=== PATIENT | female | born 1980 | race Caucasian/White ===

== ENCOUNTER 2019-11-25 19:39 | Emergency (ER) | payer SELFPAY ==
[2019-11-25] MEDS ORDERED: ONDANSETRON 4 MG/2 ML VIAL ONE (20:04)
[2019-11-25] MEDS ORDERED: NA CHLORIDE 0.9% 1,000 ML ONE (20:04)
[2019-11-25] MEDS ORDERED: MORPHINE 2 MG/ML SYR ONE (20:04)
--- NOTE | 2019-11-25 20:57 | RAD REPORT ---
EXAM DESCRIPTION: RAD - Tib Fib Right - 11/25/2019 8:16 pm CLINICAL HISTORY: PAIN COMPARISON: No comparisons FINDINGS: Oblique fracture is present through the proximal shaft of the right fibula. No significant distraction or angulation deformity. No new knee joint abnormality seen. Posterior malleolus fractur e of the tibia is present at the ankle joint. Fracture of the medial malleolus is also present withou t distraction or angulation component. This is possibly a combined fracture of both the posterior and medial malleolus. Distal fibula is intact. Tear of the interosseous ligament is suspected given the distal tibia and proximal fibula fracture pattern. Ankle is not fully assessed. No periosteal reactio n. No pathologic bone process. Right leg soft tissue swelling is present without foreign body. IMPRESSION: Posterior and medial malleolus fractures of the distal tibia present along with proximal fibula shaft fracture. Interosseous ligament tear is likely present as well.
--- NOTE | 2019-11-25 22:34 | ER ---
Nurse's Notes [facility] Name: Suyapa Lewis Age: 39 yrs Sex: Female : 1980 Arrival Date: 11/25/2019 Time: 19:42 Bed 16 Private MD: Diagnosis: Displaced oblique fracture of shaft of right fibula-proximal;Nondisplaced fracture of medial malleolus of right tibia Presentation: 11/24 19:43 Chief complaint: EMS states: pt was walking up a hill when she missed her footing and sg fell from standing, reports pain and swelling to the right ankle, EMS state " obvious deformity" on scene, a splint has been applied. Coronavirus screen: Client denies travel out of the [place] in the last 14 days. At this time, the client does not indicate any symptoms associated with coronavirus-19. Ebola Screen: Patient negative for fever greater than or equal to 101.5 degrees Fahrenheit, and additional compatible Ebola Virus Disease symptoms Patient denies exposure to infectious person. Patient denies travel to an Ebola-affected area in the 21 days before illness onset. No symptoms or risks identified at this time. Initial Sepsis Screen: Does the patient meet any 2 criteria? No. Patient's initial sepsis screen is negative. Does the patient have a suspected source of infection? No. Patient's initial sepsis screen is negative. Risk Assessment: Do you want to hurt yourself or someone else? Patient reports no desire to harm self or others. Onset of symptoms was November 25, 2019. 19:43 Method Of Arrival: EMS: [facility] 19:43 Acuity: BRODY 3 sg 19:43 Care prior to arrival: Splint applied. Medication(s) given: Ketamine 22 mg IV sg initiated. 20 GA, in the left forearm. 19:43 Mechanism of Injury: Fall from standing position. Transition of care: patient was not sg received from another setting of care. Triage Assessment: 19:43 General: Appears in no apparent distress. uncomfortable, obese, unkempt, well sg nourished, Behavior is cooperative, agitated, drowsy, restless. Pain: Complains of pain in anterior aspect of right ankle Quality of pain is described as aching. Musculoskeletal: Capillary refill is brisk, in bilateral fingers. toes. Swelling present in anterior aspect of right ankle. Historical: - Allergies: 19:43 No Known Allergies; sg - Home Meds: 19:43 Wellbutrin Oral [Active]; Seroquel Oral [Active]; Trazodone Oral [Active]; sg - PMHx: 19:43 Depression; "Psych Problems"; sg - Immunization history:: Adult Immunizations not up to date. - Social history:: Smoking status: Patient denies any tobacco usage or history of. Patient/guardian denies using alcohol, street drugs, IV drugs. Screenin:00 Abuse screen: Denies threats or abuse. Denies injuries from another. rv 20:00 Nutritional screening: No deficits noted. Tuberculosis screening: No symptoms or risk rv factors identified. Fall Risk None identified. Assessment: 20:00 General: Appears uncomfortable, Behavior is drowsy. rv 20:00 Pain: Complains of pain in anterior aspect of right ankle. Neuro: Level of rv Consciousness is obeys commands, lethargic, Oriented to person, place, time, situation. Cardiovascular: Patient's skin is warm and dry. Respiratory: Airway is patent Respiratory effort is even, unlabored. Derm: Bruising that is dark purple, on right ankle. 22:30 Reassessment: Patient and/or family updated on plan of care and expected duration. Pain rv level reassessed. Patient is alert, oriented x 3, equal unlabored respirations, skin warm/dry/pink. 22:30 Neuro: Level of Consciousness is awake, alert, obeys commands, Oriented to person, rv place, time, situation. Vital Signs: 19:43 BP 149 / 88; Pulse 106; Resp 18; Temp 97.2; Pulse Ox 97% on R/A; Weight 120.66 kg; sg Height 5 ft. 5 in. (165.10 cm); Pain 4/10; 20:30 BP 97 / 43; Pulse 91; Resp 19; Pulse Ox 100% on R/A; rv 21:00 BP 104 / 65; Pulse 84; Resp 17; Pulse Ox 97% on R/A; rv 21:30 BP 95 / 60; Pulse 81; Resp 17; Pulse Ox 100% on R/A; rv 22:45 BP 104 / 68; Pulse 76; Resp 16; Pulse Ox 100% on R/A; rv 19:43 Body Mass Index 44.26 (120.66 kg, 165.10 cm) sg ED Course: 19:42 Patient arrived in ED. sg 19:43 Arm band placed on. sg 19:43 Maintain EMS IV. Dressing intact. Site clean \\T\\ dry. Gauge \\T\\ site: 20 G LFA. IV is sg intact. 19:44 Devon Palomo PA is PHCP. cp 19:44 Bridger Lantigua MD is Attending Physician. cp 19:45 Triage completed. sg 19:48 Narinder Chavarria RN is Primary Nurse. rv 20:00 Patient has correct armband on for positive identification. Pulse ox on. NIBP on. rv 20:16 XRAY Tib Fib RIGHT In Process Unspecified. EDMS 21:33 No provider procedures requiring assistance completed. rv 21:34 Orthoglass splint: Posterior long leg splint applied on right leg. stirrup splint rv applied on right leg. 22:31 Gilbert Alfred MD is Referral Physician. cp 22:46 IV discontinued, intact, bleeding controlled, No redness/swelling at site. Pressure rv dressing applied. Administered Medications: 20:00 Drug: NS 0.9% 1000 ml Route: IV; Rate: 1 bolus; Site: left antecubital; rv 20:00 Drug: Zofran (Ondansetron) 4 mg Route: IVP; Site: left antecubital; rv 22:44 Follow up: Response: No adverse reaction rv 22:44 Not Given (Patient Refused): morphine 2 mg IVP once; (PAIN>8) RASS on ADMN: Combtv4, rv Very Agttd3, Agttd2, Rstlss1, AlertClm0, Drwsy-1, LtSdtn-2, ModSdtn-3, DpSdtn-4, UnArsble-5 x2 Outcome: 22:33 Discharge ordered by MD. cp 22:45 Discharged to home via wheelchair, with crutches. rv 22:45 Condition: good 22:45 Discharge instructions given to family, friend, Instructed on discharge instructions, follow up and referral plans. medication usage, crutch walking, Demonstrated understanding of instructions, follow-up care, medications, crutch walking, Prescriptions given X 2. 22:46 Patient left the ED. rv Signatures: Dispatcher [employer] EDMS Darrell Ramesh RN RN Devon Palomo PA PA cp Vicente, Ronaldo, RN RN rv Corrections: (The following items were deleted from the chart) 19:43 Care prior to arrival: None. lien emmanuel 19:43 Maintain EMS IV. Dressing intact. Site clean \\T\\ dry. Gauge \\T\\ site: 20 G LAC. IV is sg intact, sg
--- NOTE | 2019-11-25 22:34 | EDPHYS ---
Physician Documentation [facility] Name: Suyapa Lewis Age: 39 yrs Sex: Female : 1980 Arrival Date: 11/25/2019 Time: 19:42 Bed 16 Private MD: ED Physician Bridger Lantigua HPI: 11/24 20:00 This 39 yrs old Female presents to ER via EMS with complaints of Ankle Injury.cp 20:00 The patient presents with decreased range of motion, an injury, pain, that is acute, cp swelling, tenderness. The complaints affect the right ankle. Onset: The symptoms/episode began/occurred just prior to arrival. Context: resulted from the patient tripping, The patient is unable to bear weight. The patient is not able to ambulate. Historical: - Allergies: 19:43 No Known Allergies; sg - Home Meds: 19:43 Wellbutrin Oral [Active]; Seroquel Oral [Active]; Trazodone Oral [Active]; sg - PMHx: 19:43 Depression; "Psych Problems"; sg - Immunization history:: Adult Immunizations not up to date. - Social history:: Smoking status: Patient denies any tobacco usage or history of. Patient/guardian denies using alcohol, street drugs, IV drugs. ROS: 20:05 Constitutional: Negative for body aches, chills, fever. cp 20:05 Neck: Negative for pain with movement, pain at rest, stiffness. 20:05 Cardiovascular: Negative for chest pain. 20:05 Respiratory: Negative for cough, shortness of breath, wheezing. 20:05 Abdomen/GI: Negative for abdominal pain, nausea, vomiting, and diarrhea. 20:05 MS/extremity: Positive for injury or acute deformity, decreased range of motion, pain, of the right ankle, Negative for paresthesias. 20:05 Neuro: Negative for headache, loss of consciousness. 20:05 All other systems are negative. Exam: 20:15 Head/Face: Normocephalic, atraumatic. cp 20:15 Constitutional: The patient appears in no acute distress, alert, awake, well developed, well nourished, uncomfortable. 20:15 Neck: C-spine: vertebral tenderness, is not appreciated, crepitus, is not appreciated, ROM/movement: is normal, is supple, without pain, no range of motions limitations. 20:15 Chest/axilla: Inspection: normal, Palpation: is normal, no crepitus, no tenderness. 20:15 Cardiovascular: Rate: normal, Rhythm: regular. 20:15 Respiratory: the patient does not display signs of respiratory distress, Respirations: normal, no use of accessory muscles, no retractions, Breath sounds: are clear throughout, no decreased breath sounds, no stridor, no wheezing. 20:15 Abdomen/GI: Inspection: abdomen appears normal, Palpation: abdomen is soft and non-tender, in all quadrants. 20:15 Back: pain, is absent, ROM is normal. 20:15 Musculoskeletal/extremity: Extremities: grossly normal except: noted in the right ankle: decreased ROM, deformity, ecchymosis, pain, swelling, tenderness, Pulses: noted to be 2+ in the right dorsalis pedis artery, Perfusion: the extremity is normally perfused throughout, Sensation intact. 20:15 Neuro: Orientation: to person, place \\T\\ time. Mentation: able to follow commands, slow to respond, Motor: moves all fours, strength is normal. Vital Signs: 19:43 BP 149 / 88; Pulse 106; Resp 18; Temp 97.2; Pulse Ox 97% on R/A; Weight 120.66 kg; sg Height 5 ft. 5 in. (165.10 cm); Pain 4/10; 20:30 BP 97 / 43; Pulse 91; Resp 19; Pulse Ox 100% on R/A; rv 21:00 BP 104 / 65; Pulse 84; Resp 17; Pulse Ox 97% on R/A; rv 21:30 BP 95 / 60; Pulse 81; Resp 17; Pulse Ox 100% on R/A; rv 22:45 BP 104 / 68; Pulse 76; Resp 16; Pulse Ox 100% on R/A; rv 19:43 Body Mass Index 44.26 (120.66 kg, 165.10 cm) sg Procedures: 22:35 Splinting: Splint applied to right leg using Orthoglass splint, posterior long leg and cp stirrup splint. applied by myself. tech. Examined by me, post splint application: neurovascular intact, Patient tolerated well. 22:45 Crutch training provided to patient and/or family. Return demonstration given. cp MDM: 19:47 Patient medically screened. cp 20:00 Differential diagnosis: fracture, sprain, dislocation, multiple trauma. cp 22:30 Data reviewed: vital signs, nurses notes, radiologic studies, plain films, I have cp discussed the patient's presentation/case with the attending Emergency Department Physician; and as a result, I will discharge patient. 22:30 Counseling: I had a detailed discussion with the patient and/or guardian regarding: the cp historical points, exam findings, and any diagnostic results supporting the discharge/admit diagnosis, radiology results, the need for outpatient follow up, for definitive care, a orthopedic surgeon, to return to the emergency department if symptoms worsen or persist or if there are any questions or concerns that arise at home. Response to treatment: the patient's symptoms have markedly improved after treatment, and as a result, I will discharge patient. 11/24 19:45 Order name: XRAY Tib Fib RIGHT; Complete Time: 21:03 cp 11/24 19:45 Order name: IV; Complete Time: 19:52 cp 11/24 20:30 Order name: Splint - Long Leg: Posterior w/ Stirrup; Complete Time: 21:19 cp Administered Medications: 20:00 Drug: NS 0.9% 1000 ml Route: IV; Rate: 1 bolus; Site: left antecubital; rv 20:00 Drug: Zofran (Ondansetron) 4 mg Route: IVP; Site: left antecubital; rv 22:44 Follow up: Response: No adverse reaction rv 22:44 Not Given (Patient Refused): morphine 2 mg IVP once; (PAIN>8) RASS on ADMN: Combtv4, rv Very Agttd3, Agttd2, Rstlss1, AlertClm0, Drwsy-1, LtSdtn-2, ModSdtn-3, DpSdtn-4, UnArsble-5 x2 Disposition: 23:00 Chart complete. cp 11/25 00:49 Co-signature as Attending Physician, Bridger Lantigua MD. rn Disposition: 11/25/19 22:33 Discharged to Home. Impression: Displaced oblique fracture of shaft of right fibula - proximal, Nondisplaced fracture of medial malleolus of right tibia. - Condition is Stable. - Discharge Instructions: Tibial and Fibular Fracture, Adult. - Prescriptions for Tylenol- Codeine #3 300-30 mg Oral Tablet - take 2 tablets by ORAL route every 6 hours As needed; 20 tablet. Ibuprofen 800 mg Oral Tablet - take 1 tablet by ORAL route every 8 hours As needed take with food; 30 tablet. - Medication Reconciliation Form, Thank You Letter, Antibiotic Education, Prescription Opioid Use form. - Follow up: Gilbert Alfred MD; When: 1 - 2 days; Reason: Recheck today's complaints. - Problem is new. - Symptoms have improved. Signatures: Dispatcher [employer] EDDarrell Lee RN RN Bridger Barton MD MD rn Devon Palomo PA PA cp Narinder Chavarria RN RN rv Corrections: (The following items were deleted from the chart) 11/24 22:46 22:33 11/25/2019 22:33 Discharged to Home. Impression: Displaced oblique fracture of rv shaft of right fibula - proximal; Nondisplaced fracture of medial malleolus of right tibia. Condition is Stable. Forms are Medication Reconciliation Form, Thank You Letter, Antibiotic Education, Prescription Opioid Use. Follow up: Gilbert Alfred; When: 1 - 2 days; Reason: Recheck today's complaints. Problem is new. Symptoms have improved. cp
[2019-11-25 22:54] VITALS: TEMP 97.2
[2019-11-25 22:58] VITALS: O2SAT 100
[2019-11-25 23:00] VITALS: BP 104/68
== END 2019-11-25 22:46 | disposition home or self-care (01) ==
LOC: ER 19:39
PROC: 2W3LX1Z Immobilization of Right Lower Extremity using Splint (ICD-10-PCS; principal; 2019-11-25)
DX: S82.431A Displaced oblique fracture of shaft of right fibula, initial encounter for closed fracture (principal); S82.54XA Nondisplaced fracture of medial malleolus of right tibia, initial encounter for closed fracture; W01.0XXA Fall on same level from slipping, tripping and stumbling without subsequent striking against object, initial encounter; Y93.9 Activity, unspecified; Y92.9 Unspecified place or not applicable; F32.9 Major depressive disorder, single episode, unspecified
CPT/HCPCS: 96374; 99284; J2270; J2405; J7030